=== PATIENT | male | born 1945 | race Caucasian/White ===

== ENCOUNTER → 2023-09-10 10:57 | Outpatient (CLI) | payer OTHER, SELFPAY ==
--- NOTE | 2023-09-10 11:00 | DI.MRI.S_ITS ---
PROCEDURE: MR LUMBAR SPINE WO CON INDICATIONS: radiculopathy, lumbar region TECHNIQUE: Noncontrast sagittal T1 spin echo and T2 fast echo, sagittal STIR, and T2 fast spin echo through the lumbar spine. In cases with scoliosis, additional coronal T2 fast spin echo may be performed. COMPARISON: None. FINDINGS: Alignment and Curvature: There is normal bony alignment. Bone Marrow: Multilevel degenerative endplate changes Spinal Cord: Conus medullaris terminates at the L1 level. Visualized cord demonstrates normal signal and size. Epidural stimulator noted entering the dorsal epidural space at the L1-2 level and extending cephalad Paraspinous Soft Tissues: No paravertebral masses. T12-L1: Disc space narrowing and circumferential disc bulge present. No central stenosis. No foraminal stenosis L1-L2: Disc space narrowing and mild disc bulge without central stenosis. Hypertrophic facet joints present. No foraminal stenosis. L2-L3: Disc space narrowing and circumferential disc bulge with hypertrophic facet joints results in mild central stenosis. Mild left and no right foraminal stenosis. L3-L4: Disc space narrowing with hypertrophic facet joints present. Mild central stenosis. Moderate bilateral foraminal stenosis. L4-L5: Disc space narrowing with disc bulge and hypertrophic facet joints. No central stenosis. Severe right and left foraminal stenosis L5-S1: Disc space narrowing with hypertrophic facet joints. No central stenosis. Severe right and moderate left foraminal stenosis IMPRESSION: Multilevel degenerative disc disease and arthropathy results in varying degrees of central and foraminal stenosis including severe foraminal stenosis L4-5 and L5-S1 Dictated by: Abimael Powell M.D. on 09/10/2023 at 12:16 Approved by: Abimael Powell M.D. on 09/10/2023 at 13:20
== END ==
PROVIDERS: Referring Provider Physical Medicine & Rehabilitation; Visit Provider Physical Medicine & Rehabilitation
DX: M47.816 Spondylosis without myelopathy or radiculopathy, lumbar region (principal); M47.817 Spondylosis without myelopathy or radiculopathy, lumbosacral region; M48.061 Spinal stenosis, lumbar region without neurogenic claudication; M48.07 Spinal stenosis, lumbosacral region; M51.36 Other intervertebral disc degeneration, lumbar region; M51.37 Other intervertebral disc degeneration, lumbosacral region
CPT/HCPCS: 72148

== ENCOUNTER → 2023-10-21 14:52 | Outpatient (CLI) | payer OTHER, SELFPAY ==
--- NOTE | 2023-10-21 15:59 | EKG_ITS ---
[address] [address] Test Date: 2023-10-21 Pat Name: Endy Bertrand Department: Room: Gender: M Imagery Analyst: JAYLIN : 1945 Requested By: Order Number: [id number] Reading MD: Elliot Lopez MD Measurements Intervals [place] Rate: 80 P: [place]: QRS: 263 QRSD: 100 T: -19 QT: 394 QTc: 454 Interpretive Statements Sinus rhythm with frequent atrial-paced complexes Right superior axis deviation Incomplete right bundle branch block Right ventricular hypertrophy Inferior infarct , age undetermined ST & T wave abnormality, consider anterior ischemia NO PRIOR TRACING Electronically Signed On 10-22-2023 11:55:22 PDT by Elliot Lopez MD
[2023-10-21 16:15] LABS: Add Manual Diff / Slide Review NO; Basophils Absolute Auto 100 /uL (0-100); Basophils Percent Auto 0.9 % (0-2); Eosinophils Absolute Auto 300 /uL (0-450); Eosinophils Percent Auto 2.7 % (2-4); Hematocrit 45.3 % (41-53); Hemoglobin 15.5 g/dL (13.5-17.5); Lymphocytes Absolute Auto 1500 /uL (1100-4500); Lymphocytes Percent Auto 15.5 % (25-40); Mean Corpuscular HGB Conc 34.2 % (30-36); Mean Corpuscular Hemoglobin 30.3 PG (26-34); Mean Corpuscular Volume 88.6 fL (80-100); Monocytes Absolute Auto 700 /uL (0-900); Monocytes Percent Auto 7.6 % (3-14); Neutrophils Absolute Auto 7000 /uL (1500-7000); Neutrophils Percent Auto 73.3 % (50-75); Platelet Count 266 X10^3/uL (150-400); Red Blood Cell Count 5.11 X10^6/uL (4.5-5.9); Red Cell Distribution Width 12.8 % (11.6-14.8); White Blood Cell Count 9.5 X10^3/uL (4.5-11.0)
[2023-10-21 16:35] LABS: INR 1.2 (0.9-1.3); Prothrombin Time 13.3 SECONDS (9.4-12.5)
[2023-10-21 16:38] LABS: PTT Partial Thromboplastin Tim 36 SECONDS (25.1-36.5)
[2023-10-21 16:48] LABS: BUN Creatinine Ratio 17.2 (6-22); Blood Urea Nitrogen 17 mg/dL (9-20); Calcium 9.3 mg/dL (8.4-10.2); Carbon Dioxide 30 mmol/L (22-32); Chloride 105 mmol/L (98-107); Estimated Glomerular Filt Rate > 60 mL/min (>60); Glucose 158 mg/dL (80-110); HEMOLYSIS < 15 (0-50); Potassium 4.8 mmol/L (3.4-5.1); Sodium 139 mmol/L (137-145)
== END ==
PROVIDERS: Referring Provider Physical Medicine & Rehabilitation; Visit Provider Physical Medicine & Rehabilitation
DX: Z01.818 Encounter for other preprocedural examination (principal); Z51.81 Encounter for therapeutic drug level monitoring; Z01.812 Encounter for preprocedural laboratory examination
CPT/HCPCS: 36415; 80048; 85025; 85610; 85730; 93005; 93010

== ENCOUNTER → 2024-02-23 16:51 | Outpatient (CLI) | payer OTHER, SELFPAY ==
--- NOTE | 2024-02-23 16:52 | DI.MRI.S_ITS ---
PROCEDURE: MR LUMBAR SPINE WO CON INDICATIONS: RADICULOPATHY,LUMBAR REGION TECHNIQUE: Noncontrast sagittal T1 spin echo and T2 fast echo, sagittal STIR, and T2 fast spin echo through the lumbar spine. In cases with scoliosis, additional coronal T2 fast spin echo may be performed. COMPARISON: [facility], [place], PET PSMA PYLARIFY, 01/15/2024, 15:32. [facility], , MR LUMBAR SPINE WO CON, 09/10/2023, 11:33. FINDINGS: Image quality: Excellent Straightening of the lumbar spine. Mild retrolisthesis L3 on L4, and L5 on S1. Multifocal mild fibrovascular end plate change. There is a small Schmorl's node in the inferior endplate of L1, with mild surrounding marrow edema, improved from prior exam. There is interval development multiple T2 hyperintense lesion, most pronounced at L5 and S1 vertebral body, measuring up to 1.5 cm in S1 vertebral body. Vertebral body heights are grossly well maintained. Multilevel disc desiccation and disc bulge. Conus terminates at the level of T12-L1, and is unremarkable. Right neural foraminal stenosis: Mild at L3-4, moderate at L4-5, moderate at L5-S1 Left neural foraminal stenosis: Mild at T10-T11, L3-L4, moderate at L4-5 and L5-S1. Axial images: T11-T12: No central canal stenosis. T12-L1: Mild disc bulge. No central canal stenosis. L1-2: Mild disc bulge. Mild bilateral facet arthropathy. No central canal stenosis. L2-3: Mild disc bulge. Mild bilateral facet arthropathy. No central canal stenosis. L3-4: Mild disc bulge. Mild bilateral facet arthropathy. No central canal stenosis. L4-5: Moderate bilateral facet arthropathy. No central canal stenosis. L5-S1: Moderate bilateral facet arthropathy. No central canal stenosis. Thoracic pain stimulator lease is partially noted in the epidural space of the lower thoracic spine. Visualized sacrum is intact. No abdominal aortic aneurysm. IMPRESSION: 1. 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 Recommend further evaluation with bone scintigraphy. 2. Multilevel degenerative changes of the lumbar spine, most pronounced at L4-5 and L5-S1, where there is moderate bilateral neural neural foraminal stenosis, unchanged from prior exam. Dictated by: Benita Bernard M.D. on 02/24/2024 at 10:03 Approved by: Benita Bernard M.D. on 02/24/2024 at 10:17
== END ==
PROVIDERS: Referring Provider Physical Medicine & Rehabilitation; Visit Provider Physical Medicine & Rehabilitation
DX: M51.16 Intervertebral disc disorders with radiculopathy, lumbar region (principal); M47.26 Other spondylosis with radiculopathy, lumbar region; M47.27 Other spondylosis with radiculopathy, lumbosacral region; M48.061 Spinal stenosis, lumbar region without neurogenic claudication; M48.07 Spinal stenosis, lumbosacral region; M89.9 Disorder of bone, unspecified
CPT/HCPCS: 72148